=== PATIENT | female | born 1985 | race Caucasian/White ===

== ENCOUNTER 2021-05-23 03:57 | Outpatient (CLI) | payer MEDICAID | END 2021-05-23 03:58 | disposition critical access hospital (66) | LOC: EMS 03:57 | DX: R56.9 Unspecified convulsions (principal) | CPT/HCPCS: A0425; A0429; A0999 ==

== ENCOUNTER 2021-05-23 04:13 | Emergency (ER) | payer MEDICAID ==
--- NOTE | 2021-05-23 04:34 | ED Physician Documentation ---
History of Present Illness - Stated complaint Stated Complaint: SEIZURE - Chief complaint Chief Complaint: Neuro - History obtained from History obtained from: Patient, EMS - Additonal information Additional information: 35yF with no pmh except for colitis diagnosed yesterday at [facility] p/w seizure-like episode witnessed by in the early hours of this morning while lying in bed. 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 denies fevers, vomiting, diarrhea, pain anywhere except for L tongue which she bit. she endorses mild nausea at present. EMS reports normal fingerstick and vitals in the field, and that she initially appeared to be post-ictal but is now AOX3. denies etoh/drug use. Records from [facility] show she had normal cbc , chemistry and abdominal labs yesterday. CT showed colitis and she was discharged without any prescriptions with advice of symptomatic care. Review of Systems Ten Systems: 10 systems reviewed and negative Constitutional: denies: Fever, Chills Cardiac: denies: Chest pain / pressure Respiratory: denies: Dyspnea GI: reports: Nausea. denies: Abdominal Pain, Vomiting, Diarrhea : denies: Dysuria Neurologic: reports: Seizure PD PAST MEDICAL HISTORY - Past Medical History Past Medical History: No - Past Surgical History Past Surgical History: No - Present Medications Home Medications: Ambulatory Orders Medication Instructions Recorded Confirmed No Known Home Medications 05/23/21 05/23/21 - Allergies Allergies/Adverse Reactions: Allergies Allergy/AdvReac Type Severity Reaction Status Date / Time No Known Drug Allergies Allergy Verified 05/23/21 04:23 - Social History Does the pt smoke?: No Smoking Status: Never smoker Does the pt drink ETOH?: No Does the pt have substance abuse?: No - Immunizations Immunizations are current?: Yes - POLST Patient has POLST: No PD ED PE NORMAL - Vitals Vital signs reviewed: Yes - General General: Alert and oriented X 3, No acute distress, Well developed/nourished - HEENT HEENT: Atraumatic, PERRL, EOMI, Moist mucous membranes, Pharynx benign, Other (L tongue abrasion) - Neck Neck: Supple, no meningeal sign - Cardiac Cardiac: RRR - Respiratory Respiratory: No respiratory distress, Clear bilaterally - Abdomen Abdomen: Non tender, Non distended - Derm Derm: Normal color, Warm and dry - Extremities Extremities: No edema - Neuro Neuro: Alert and oriented X 3, 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, No motor deficit, No sensory deficit, Normal speech - Psych Psych: Normal mood, Normal affect Results - Vitals Vitals: Vital Signs - 24 hr 05/23/21 05/23/21 05/23/21 04:14 04:17 05:24 Temperature 36.3 C L 36.3 C L Heart Rate 84 84 90 Respiratory 18 18 18 Rate Blood Pressure 100/67 100/67 107/76 O2 Saturation 100 100 100 Oxygen O2 Source Room air - Labs Labs: Laboratory Tests 05/23/21 05/23/21 05/23/21 04:50 04:50 04:50 WBC RBC Hgb Hct MCV MCH MCHC RDW Plt Count MPV Neut # (Auto) Lymph # (Auto) Gulf # (Auto) Eos # (Auto) Baso # (Auto) Absolute Nucleated RBC Nucleated RBC % VBG pH 7.435 H VBG pCO2 26.6 L VBG pO2 62.9 H VBG HCO3 17.5 L VBG Total CO2 18.3 L VBG O2 Saturation 93.1 H VBG Base Excess -5.3 L Sodium Potassium Chloride Carbon Dioxide Anion Gap BUN Creatinine Estimated GFR (MDRD) Glucose Lactic Acid 2.7 H Calcium Total Bilirubin AST ALT Alkaline Phosphatase Total Protein Albumin Globulin Albumin/Globulin Ratio Lipase HCG, Quant < 0.60 05/23/21 05/23/21 04:50 04:50 WBC 7.9 RBC 4.17 L Hgb 12.1 Hct 37.6 MCV 90.2 MCH 29.0 MCHC 32.2 RDW 13.1 Plt Count 235 MPV 10.6 Neut # (Auto) 4.7 Lymph # (Auto) 2.3 Gulf # (Auto) 0.5 Eos # (Auto) 0.1 Baso # (Auto) 0.1 Absolute Nucleated RBC 0.00 Nucleated RBC % 0.0 VBG pH VBG pCO2 VBG pO2 VBG HCO3 VBG Total CO2 VBG O2 Saturation VBG Base Excess Sodium 140 Potassium 3.5 Chloride 105 Carbon Dioxide 21 Anion Gap 14.0 H BUN 8 Creatinine 0.6 Estimated GFR (MDRD) 115 Glucose 148 H Lactic Acid Calcium 8.8 Total Bilirubin 0.8 AST 15 ALT 15 Alkaline Phosphatase 72 Total Protein 6.9 Albumin 4.0 Globulin 2.9 Albumin/Globulin Ratio 1.4 Lipase 24 HCG, Quant PD MEDICAL DECISION MAKING - ED course ED course: 35yF p/w likely first time seizure with return to baseline, without any apparent triggers. will obtain repeat labs, CT. patient declining medications including zofran and ativan with the understanding that if she has another seizure we will need to give AED. Patient in NAD in the ED, no complaints at this time. Elevated lactate attributable to seizure. Labwork otherwise noncontributory. CT head - R cerebritis favored over R cerebral infarction. follow up MRI advised. I d/w our hospitalist Dr. Dennis who states the patient needs to be transferred to a hospital with neurology capabilities and this is too complicated to manage here. Our [facility] is making calls now. Discussed with [facility] neurology fellow Dr. Chasity Blackburn - Extremely unlikely odds of stroke with no neuro deficit at present. High suspicion for mass given the vasogenic edema evident on the right side on head CT. unlikely to uncover anything on lumbar puncture therefore she is recommending against CTA head and neck and lumbar puncture for now but does recommend MRI brain with and without contrast, loading dose of 1500 of Keppra and then 750 twice daily thereafter. We will recontact either system or another hospital with neurology/neurosurgery capabilities after the MRI. patient endorsed to incoming daytime ED MD for further management and care. Departure - Departure Clinical Impression: Seizure Condition: Stable
[2021-05-23 04:59] LABS: BASOPHILS # (AUTO) 0.1 10^3/uL (0.0-0.1); BASOPHILS % (AUTO) 0.9 %; EOSINOPHILS # (AUTO) 0.1 10^3/uL (0.0-0.7); EOSINOPHILS % (AUTO) 1.8 %; HCT - HEMATOCRIT 37.6 % (37.0-47.0); HGB - HEMOGLOBIN 12.1 g/dL (12.0-16.0); LYMPHOCYTES # (AUTO) 2.3 10^3/uL (1.5-3.5); LYMPHOCYTES % (AUTO) 29.7 %; MEAN CORPUSCULAR HGB CONC 32.2 g/dL (32.0-36.0); MEAN CORPUSCULAR VOLUME 90.2 fL (81.0-99.0); MEAN PLATELET VOLUME 10.6 fL (7.9-10.8); MONOCYTES # (AUTO) 0.5 10^3/uL (0.0-1.0); MONOCYTES % (AUTO) 6.9 %; NEUTROPHILS # (AUTO) 4.7 10^3/uL (1.5-6.6); NEUTROPHILS % (AUTO) 60.2 %; PLT - PLATELET COUNT 235 10^3/uL (130-450); RED BLOOD COUNT 4.17 10^6/uL (4.20-5.40); RED CELL DISTRIBUTION WIDTH 13.1 % (12.0-15.0); VBG BASE EXCESS -5.3 mmol/L (-2 - +2); VBG HCO3 17.5 mmol/L (23-28); VBG OXYGEN SATURATION 93.1 % (60-80); VBG PCO2 26.6 mmHg (41-51); VBG PH 7.435 (7.31-7.41); VBG PO2 62.9 mmHg (25-47); VBG TOTAL CO2 18.3 mmol/L (24-29); WHITE BLOOD COUNT 7.9 x10^3/uL (4.8-10.8)
[2021-05-23 05:12] LABS: ALBUMIN/GLOBULIN RATIO 1.4 (1.0-2.2); BILIRUBIN,TOTAL 0.8 mg/dL (0.2-1.0); CALCIUM 8.8 mg/dL (8.5-10.3); CREATININE 0.6 mg/dL (0.4-1.0); POTASSIUM 3.5 mmol/L (3.5-5.0); TOTAL PROTEIN 6.9 g/dL (6.7-8.2)
[2021-05-23] MEDS ORDERED: SODIUM CHLORIDE 0.9% 1,000 ML IV STA (05:28)
[2021-05-23] MEDS ORDERED: levETIRAcetam INJ 1,500 MG in SODIUM CHLORIDE 0.9% 100ML 100 ML IV STA (05:53)
[2021-05-23 06:33] LABS: B. PARAPERTUSSIS- RESP PCR PAN NOT DETECTED; B. PERTUSSIS- RESP PCR PANEL NOT DETECTED; C. PNEUMONIAE- RESP PCR PANEL NOT DETECTED; CORONAVIRUS 229E-RESP PCR NOT DETECTED; CORONAVIRUS HKU1-RESP PCR NOT DETECTED; CORONAVIRUS NL63-RESP PCR NOT DETECTED; CORONAVIRUS OC43-RESP PCR NOT DETECTED; HUMAN METAPNEUMOVIRUS NOT DETECTED; INFLUENZA A- RESP PCR PANEL NOT DETECTED; INFLUENZA B - RESP PCR PANEL NOT DETECTED; M. PNEUMONIAE- RESP PCR PANEL NOT DETECTED; PARAINFLUENZA VIRUS 1 NOT DETECTED; PARAINFLUENZA VIRUS 2 NOT DETECTED; PARAINFLUENZA VIRUS 3 NOT DETECTED; PARAINFLUENZA VIRUS 4 NOT DETECTED; RHINOVIRUS/ENTEROVIRUS NOT DETECTED; RSV- RESP PCR PANEL NOT DETECTED; SARS-CoV-2 -RESP PCR PANEL NOT DETECTED
--- NOTE | 2021-05-23 08:14 | CT Report ---
PROCEDURE: HEAD WO INDICATIONS: seizure TECHNIQUE: Noncontrast 4.5 mm thick angled axial sections acquired from the foramen magnum to the vertex. For r adiation dose reduction, the following was used: automated exposure control, adjustment of mA and/or kV according to patient size. COMPARISON: None. FINDINGS: Image quality: Excellent. CSF spaces: Basal cisterns are patent. No extra-axial fluid collections. There is slight effacement of the anterior horn of the right lateral ventricle. Brain: No midline shift. No intracranial masses or hemorrhage. There are ill-defined areas of low a ttenuation predominantly within the right frontal temporal and parietal lobes with asymmetric gyral a nd sulcal effacement. There is slight effacement of the frontal horn of the right lateral ventricle. No midline shift. Skull and face: Calvarium and visualized facial bones are intact, without suspicio us lesions. Sinuses: Visualized sinuses and mastoids are clear. IMPRESSION: 1. Ill-defined low-attenuation within the right frontal, temporal and parietal lobes as above with gy ral and sulcal effacement, as well as effacement of the frontal horn of the right lateral ventricle. This could be related to edema secondary to infection or inflammation or infarction secondary to isch emia. MRI brain with and without contrast is recommended for further evaluation. The above findings are concordant with preliminary report. Reviewed by: Karissa Alvarado MD on 05/23/2021 8:13 AM [facility] Approved by: Karissa Alvarado MD on 05/23/2021 8:13 AM [facility] Station ID: [id number]
[2021-05-23] MEDS ORDERED: GADOBUTROL 10 MMOL/10 ML VIAL ONE (08:52)
--- NOTE | 2021-05-23 09:54 | MRI Report ---
PROCEDURE: Brain W/WO INDICATIONS: New onset Seizure CONTRAST: IV CONTRAST: Gadavist ml: 9.9 TECHNIQUE: Noncontrast axial T1 spin echo, axial T2 fast spin echo, sagittal and axial FLAIR, coronal T2 fast sp in echo, axial gradient echo, axial diffusion and ADC through the brain. After the administration of contrast, axial and coronal T1 spin echo with fat saturation through the brain. COMPARISON: Correlation is made with head CT, 05/23/2021. FINDINGS: Image quality: Excellent. CSF spaces: Basal cisterns are patent. No extra-axial fluid collections. Ventricles are asymmetric , with mild narrowing of the right lateral ventricle compared to the left. Brain: Centered within the deep white matter of the right frontal lobe, there is a masslike focus wi th prominent soft tissue edema. There does appear to be involvement of the overlying waggoner matter invo lving the right frontal lobe laterally. This process is poorly defined, it measures approximate 6.3 c m AP by 4.1 cm transversely, with a craniocaudal extent of 4.3 cm. There is mild mass effect seen, al though there is no midline shift seen. Scrutiny is given to enhancement of this masslike lesion, and none can be seen. However, there is mil d enhancement of the overlying meninges laterally, as on series 1203 image 46. On diffusion-weighted images, there is increased signal seen on the B 1000 images. However, on the AD C maps, there is no definite associated dark signal and this is attributed to artifact from "T2 shine through." Diffusion-weighted images demonstrate no acute ischemic insults. No areas of enhancement are seen elsewhere. No other masses are seen. The brainstem appears normal. No chronic ischemic insults. Normal intravascular flow voids are pr esent. Skull and face: Calvarial marrow is normal in signal. Orbits appear normal. Sinuses: Mucous retention cysts can be seen within the maxillary sinuses. Sinuses and mastoids other samuel appear clear. IMPRESSION: Nonenhancing area of masslike brain edema seen, which is centered within the deep white matter of the right frontal lobe. This is nonspecific, although strong concern is raised for a nonenhancing low-gr albert neoplasm, such as an astrocytoma. Mild mass effect is seen, with mild narrowing of the right lateral ventricle compared to the left. No definite midline shift is seen. Urgent neurosurgical consultation is recommended. Reviewed by: Christian Hays MD on 05/23/2021 8:52 AM [facility] Approved by: Christian Hays MD on 05/23/2021 8:52 AM [facility] Station ID: [id number]
[2021-05-23] MEDS ORDERED: DEXAMETHASONE 10 MG/ML VIAL IVP STA (10:04)
[2021-05-23 12:30] VITALS: BP 112/68
[2021-05-23] MEDS ORDERED: GADOBUTROL 10 MMOL/10 ML VIAL IVP ONE (12:39)
[2021-05-23] MEDS ORDERED: levETIRAcetam INJ 750 MG in SODIUM CHLORIDE 0.9% 100ML 100 ML IV SCH ×4 (20:00)
== END 2021-05-23 13:06 | disposition short-term general hospital (02) ==
LOC: ED 04:13
DX: R56.9 Unspecified convulsions (principal); G93.6 Cerebral edema; S00.512A Abrasion of oral cavity, initial encounter; X58.XXXA Exposure to other specified factors, initial encounter; Z20.822 Contact with and (suspected) exposure to COVID-19
CPT/HCPCS: 0202U; 36415; 70450; 70553; 80053; 82803; 83605; 83690; 84702; 85025; 96365; 96375; 99284; A9585

== ENCOUNTER 2022-03-27 12:07 | Outpatient (CLI) | payer MEDICAID | END 2022-03-27 12:08 | disposition left against medical advice (07) | LOC: EMS 12:07 | DX: R56.9 Unspecified convulsions (principal) ==